=== PATIENT | female | born 2000 | race African-American/Black ===

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

== ENCOUNTER 2022-08-07 09:30 | Emergency (ER) | payer OTHER | END 2022-08-07 10:05 | disposition home or self-care (01) | LOC: ERS 09:30 | DX: J01.90 Acute sinusitis, unspecified (principal) | CPT/HCPCS: 99283 ==

== ENCOUNTER 2023-05-27 11:03 | Emergency (ER) | payer OTHER, SELFPAY ==
[2023-05-27 11:40] LABS: Bacteria/HPF None Seen HPF (None Seen); Bilirubin Negative (Negative); Blood, Urine Negative (Negative); CAUTI Indications for Culture Pelvic or flank pain; Clarity Clear (Clear); Glucose, Urine (Dipstick) Normal (Negative); Ketone, Urine Negative (Negative); Leukocyte Negative Leu/uL (Negative); Nitrite Negative (Negative); Protein, Urine (Dipstick) Negative (Neg-Trace); RBC/HPF 0-3 HPF (0-3); Specific Gravity, Urine 1.017 (1.002-1.036); Squamous Epithelial 0-3 HPF (0-3); Urobilinogen Normal mg/dL (Less than 2); WBC/HPF 0-3 HPF (0-3); pH, Urine 6.5 (5.0-9.0)
[2023-05-27 11:45] LABS: Pregnancy Test - Urine (BHCG) Negative (Negative); Pregu Control Background? CLEAR/WHITE (CLR/WHITE); Pregu Control Bar Appear? YES (CONTROL BAR); Specific Gravity 1.017 (1.002-1.036); Urine Culture Reflex No No
[2023-05-28 00:36] LABS: GC by PCR, Vaginal Swab Not Detected (NotDetected)
== END 2023-05-27 13:24 | disposition home or self-care (01) ==
LOC: ERS 11:03
DX: N89.8 Other specified noninflammatory disorders of vagina (principal)
CPT/HCPCS: 76856; 81001; 81025; 87480; 87510; 87591; 87660

== ENCOUNTER 2023-07-22 02:53 | Emergency (ER) | payer SELFPAY ==
[2023-07-22] MEDS ORDERED: Cyclobenzaprine 10 MG TAB ONE (05:08)
[2023-07-22] MEDS ORDERED: Ketorolac Tromethamine 30 MG (1 mL) VIAL ONE (05:08)
== END 2023-07-22 05:27 | disposition home or self-care (01) ==
LOC: ERS 02:53
DX: M25.561 Pain in right knee (principal); K58.9 Irritable bowel syndrome, unspecified; V03.10XA Pedestrian on foot injured in collision with car, pick-up truck or van in traffic accident, initial encounter; Z55.6 Problems related to health literacy
CPT/HCPCS: 96372; 99283; J1885

== ENCOUNTER 2023-08-11 03:14 | Emergency (ER) | payer SELFPAY ==
[2023-08-11 03:38] LABS: Bacteria/HPF None Seen HPF (None Seen); Bilirubin Negative (Negative); Blood, Urine Negative (Negative); CAUTI Indications for Culture Pelvic or flank pain; Clarity Clear (Clear); Glucose, Urine (Dipstick) Normal (Negative); Ketone, Urine Negative (Negative); Leukocyte Negative Leu/uL (Negative); Nitrite Negative (Negative); Protein, Urine (Dipstick) Negative (Neg-Trace); RBC/HPF 0-3 HPF (0-3); Specific Gravity, Urine 1.019 (1.002-1.036); Squamous Epithelial 0-3 HPF (0-3); Urobilinogen Normal mg/dL (Less than 2); WBC/HPF None Seen HPF (0-3)
[2023-08-11 03:39] LABS: Pregnancy Test - Urine (BHCG) Negative (Negative); Pregu Control Background? CLEAR/WHITE (CLR/WHITE); Pregu Control Bar Appear? YES (CONTROL BAR); Specific Gravity 1.019 (1.002-1.036)
[2023-08-11 03:40] LABS: Urine Culture Reflex No No
[2023-08-11] MEDS ORDERED: Doxycycline 100 MG CAP ONE (04:22)
[2023-08-11] MEDS ORDERED: Lidocaine 1% MPF 2 ML VIAL ONE (04:22)
[2023-08-11] MEDS ORDERED: cefTRIAXone (ROCEPHIN) 500 MG VIAL ONE (04:23)
[2023-08-11 06:15] LABS: HIV (1/2) Antibody/Antigen Non-Reactive (NonReactive); HIV 1/2 INDEX 0.13 S/CO (<1.00)
[2023-08-11 11:47] LABS: Syphilis Antibody Nonreactive (Nonreactive); Syphilis Antibody Index 0.06 S/CO (<1.00 Non-Reactive)
[2023-08-12 02:33] LABS: Chlamydia by PCR, Vaginal Swab DETECTED (NotDetected); GC by PCR, Vaginal Swab Not Detected (NotDetected)
== END 2023-08-11 05:10 | disposition home or self-care (01) ==
LOC: ERS 03:14
DX: N89.8 Other specified noninflammatory disorders of vagina (principal); E11.9 Type 2 diabetes mellitus without complications; Z55.6 Problems related to health literacy
CPT/HCPCS: 36415; 81001; 81025; 86780; 87389; 87480; 87491; 87510; 87591; 87660; 96372; 99284; J0696

== ENCOUNTER 2023-11-02 21:23 | Emergency (ER) | payer SELFPAY ==
[2023-11-02] MEDS ORDERED: Ondansetron ODT 4 MG TAB ONE (22:29)
[2023-11-02 22:35] LABS: Bacteria/HPF None Seen HPF (None Seen); Bilirubin Negative (Negative); Blood, Urine Negative (Negative); CAUTI Indications for Culture Pelvic or flank pain; Clarity Clear (Clear); Glucose, Urine (Dipstick) Normal (Negative); Ketone, Urine 40 mg/dL (Negative); Leukocyte Negative Leu/uL (Negative); Mucous/LPF Rare LPF (<2+); Nitrite Negative (Negative); Protein, Urine (Dipstick) 20 mg/dL (Neg-Trace); Specific Gravity, Urine 1.027 (1.002-1.036); Urobilinogen 6 mg/dL (Less than 2); WBC/HPF 0-3 HPF (0-3); pH, Urine 6.5 (5.0-9.0)
[2023-11-02 22:36] LABS: Pregnancy Test - Urine (BHCG) POSITIVE (Negative); Pregu Control Background? CLEAR/WHITE (CLR/WHITE); Pregu Control Bar Appear? YES (CONTROL BAR); Specific Gravity 1.027 (1.002-1.036); Urine Culture Reflex No No
[2023-11-02 22:46] LABS: #Basophils 0.03 10x3/uL (0.0-0.2); %Basophils 0.3 % (0.0-1.0); %Eosinophils 0.6 % (0.0-10.0); %Lymphocytes 30.1 % (21.0-51.0); %Neutrophils 60.8 % (42.0-75.0); Hematocrit 42.2 % (36.0-47.0); Mean Corpuscular HGB CONC 33.2 g/dL (32.0-36.0); Mean Corpuscular Hemoglobin 27.8 pg (27.0-31.0); Mean Corpuscular Volume 83.9 fL (78.0-98.0); Mean Platelet Volume 8.7 fL (7.4-10.4); Platelet Count 267 10x3/uL (130-400); RBC Distribution Width 12.8 % (11.5-14.5); Red Blood Cell (RBC) Count 5.03 mill/uL (4.20-5.40)
[2023-11-02 23:15] LABS: ALT (SGPT) 16 U/L (8-55); AST (SGOT) 19 U/L (5-34); Alkaline Phosphatase 60 U/L (40-110); Anion Gap 14 mmol/L (10-20); BUN (Urea Nitrogen) 11 mg/dL (7.0-18.7); Bilirubin, Total 0.5 mg/dL (0.2-1.2); Calc. Creatinine Clearance 0 mL/min (70-130); Calcium 9.5 mg/dL (7.8-10.44); Carbon Dioxide 23 mmol/L (22-29); Chloride 104 mmol/L (98-107); Estimated GFR 112; Globulin 3.6 g/dL (2.4-3.5); Glucose 86 mg/dL (70-105); Potassium 3.7 mmol/L (3.5-5.1); Protein, Total 7.6 g/dL (6.0-8.3); Sodium 137 mmol/L (136-145)
[2023-11-02] MEDS ORDERED: Acetaminophen 650 MG/20.3 ML UDCUP ONE (23:55)
== END 2023-11-03 00:28 | disposition home or self-care (01) ==
LOC: ERS 21:23
DX: O99.891 Other specified diseases and conditions complicating pregnancy (principal); K59.00 Constipation, unspecified; Z3A.01 Less than 8 weeks gestation of pregnancy
CPT/HCPCS: 36415; 76856; 80053; 81001; 81025; 84702; 85025; 86900; 86901; 93976; Q0162